=== PATIENT | female | born 1980 | race Caucasian/White ===

== ENCOUNTER 2020-04-21 08:09 | Observation (INO) ==
[2020-04-21] MEDS ORDERED: 0.9 % Sodium Chloride 1,000 ML IVC ONE (08:25)
[2020-04-21] MEDS ORDERED: Ondansetron 4 MG/2 ML VIAL IVP ONE (08:25)
[2020-04-21] MEDS ORDERED: Pantoprazole 40 MG VIAL IVP ONE (08:25)
[2020-04-21] MEDS ORDERED: Isovue-370 500 ML BOTTLE IVP ONE (08:25)
[2020-04-21] MEDS ORDERED: *HR* FentaNYL (PF) 100 MCG/2 ML VIAL IVP ONE ×2 (08:26→11:17)
[2020-04-21 08:47] LABS: Basophils % 0.4 %; Eosinophils # 0.1 K/mcL (0.0-0.6); Eosinophils % 1.1 %; Hematocrit 35.2 % (35.3-44.9); Hemoglobin 11.5 g/dL (11.5-15.4); Immature Granulocytes % 0.5 % (0-4); Lymphocytes # 3.2 K/mcL (0.6-4.6); Lymphocytes % 38.6 %; Mean Corpuscular HGB Conc 32.7 g/dL (31.6-35.5); Mean Corpuscular Hemoglobin 30.5 pg (28.0-33.3); Mean Corpuscular Volume 93.4 fL (83.0-100.0); Mean Platelet Volume 8.3 fL (9.4-12.4); Monocytes # 0.4 K/mcL (0.0-1.3); Monocytes % 4.7 %; Neutrophils # 4.5 K/mcL (1.6-8.9); Platelet Count 553 K/mcL (140-400); Red Blood Count 3.77 M/mcL (3.82-4.97); Red Cell Distribution Width 13.9 % (11.5-14.5); Segmented Neutrophils % 54.7 %; White Blood Count 8.3 K/mcL (4.3-11.1)
[2020-04-21 08:56] LABS: INR 1.1
[2020-04-21 08:58] LABS: Activated Partial Thrombo Time 32.4 Seconds (26.0-36.0)
[2020-04-21 09:06] LABS: Alanine Aminotransferase 18 Units/L (7-52); Albumin 3.4 g/dL (3.5-5.7); Albumin/Globulin Ratio 1.1 (1.1-2.2); Alkaline Phosphatase 244 Units/L (34-104); Amylase 26 Units/L (29-103); Aspartate Amino Transferase 14 Units/L (13-39); BUN/Creatinine Ratio 13 (6-26); Bilirubin,Direct 0.1 mg/dL (0.0-0.2); Bilirubin,Indirect 0.2 mg/dL (0.0-1.0); Bilirubin,Total 0.3 mg/dL (0.3-1.0); Blood Urea Nitrogen 8 mg/dL (6-20); Calcium 8.7 mg/dL (8.6-10.3); Carbon Dioxide 27 mEq/L (23-29); Chloride 100 mEq/L (98-107); Glucose 157 mg/dL (70-105); Lipase 21 Units/L (11-82); Osmolality,Calculated 280 (280-300); Sodium 134 mEq/L (136-145); Total Protein 6.4 g/dL (6.4-8.9); eGFR For African Americans > 60 (> 60); eGFR For Non-African Americans > 60 (> 60)
[2020-04-21 09:50] LABS: Clarity,Urine Clear (Clear); Color,Urine Dark-Orange (Yellow)
[2020-04-21 09:52] LABS: Squamous Epithelial Cell,Urine Few per hpf (None-Few)
[2020-04-21 09:53] LABS: WBC,Urine 0-3 per hpf (0-3)
[2020-04-21] MEDS ORDERED: Ondansetron 4 MG/2 ML VIAL IVP PRN (12:16)
[2020-04-21] MEDS ORDERED: Naloxone 0.4 MG/ML INJ IVP PRN (12:16)
[2020-04-21] MEDS: Ringers Solution, Lactated 1,000 ML IVC SCH ×2 (14:11→19:50)
[2020-04-21] MEDS: *HR* HYDROmorphone 2 MG/ML SYRINGE IVP PRN ×4 (14:12→21:55)
[2020-04-21] MEDS ORDERED: *HR* HYDROmorphone (PF) 1 MG/ML SYRINGE IVP ONE (22:35)
[2020-04-22] MEDS: *HR* HYDROmorphone 2 MG/ML SYRINGE IVP PRN ×2 (00:06→03:01)
[2020-04-22] MEDS: Ringers Solution, Lactated 1,000 ML IVC SCH (03:03)
[2020-04-22] MEDS: *HR* HYDROmorphone (PF) 1 MG/ML SYRINGE IVP PRN ×2 (05:02→08:22)
[2020-04-22] MEDS ORDERED: *HR* Enoxaparin 40 MG/0.4 ML SYRINGE SQ SCH (06:00)
[2020-04-22 06:21] VITALS: BP 135/83
[2020-04-22] MEDS ORDERED: Pantoprazole 40 MG VIAL IVP SCH (09:00)
[2020-04-22 09:30] LABS: Basophils % 0.6 %; Eosinophils # 0.1 K/mcL (0.0-0.6); Eosinophils % 1.4 %; Hematocrit 33.9 % (35.3-44.9); Hemoglobin 11.2 g/dL (11.5-15.4); Immature Granulocytes % 0.5 % (0-4); Lymphocytes # 1.8 K/mcL (0.6-4.6); Mean Corpuscular Hemoglobin 31.3 pg (28.0-33.3); Mean Corpuscular Volume 94.7 fL (83.0-100.0); Mean Platelet Volume 8.3 fL (9.4-12.4); Monocytes # 0.3 K/mcL (0.0-1.3); Monocytes % 4.6 %; Neutrophils # 4.3 K/mcL (1.6-8.9); Platelet Count 453 K/mcL (140-400); Red Blood Count 3.58 M/mcL (3.82-4.97); Red Cell Distribution Width 13.5 % (11.5-14.5); Segmented Neutrophils % 64.9 %; White Blood Count 6.6 K/mcL (4.3-11.1)
[2020-04-22 11:12] LABS: BUN/Creatinine Ratio 15 (6-26); Blood Urea Nitrogen 8 mg/dL (6-20); Calcium 8.5 mg/dL (8.6-10.3); Carbon Dioxide 26 mEq/L (23-29); Chloride 103 mEq/L (98-107); Glucose 112 mg/dL (70-105); Magnesium 1.8 mg/dL (1.6-2.6); Osmolality,Calculated 283 (280-300); Potassium 4.2 mEq/L (3.5-5.1); Sodium 137 mEq/L (136-145); eGFR For African Americans > 60 (> 60); eGFR For Non-African Americans > 60 (> 60)
[2020-04-22] MEDS ORDERED: Gabapentin 400 MG CAPSULE PO SCH (15:00)
[2020-04-22] MEDS ORDERED: Mirtazapine 15 MG TABLET PO SCH (21:00)
[2020-04-22] MEDS ORDERED: CarBAMazepine 100 MG TABLET PO SCH (21:00)
[2020-04-23] MEDS ORDERED: FLUoxetine 20 MG CAPSULE PO SCH (09:00)
[2020-04-23] MEDS ORDERED: OLANZapine 10 MG TAB.RAPDIS PO SCH (09:00)
== END 2020-04-22 10:02 | disposition left against medical advice (07) ==
LOC: EMEROOARM 08:09 → 3BNU 08:09 → SUATTDRO 12:09 → 3BNU 12:48
PROVIDERS: ADMIT Internal Medicine; ATTEND Internal Medicine